=== PATIENT | female | born 1995 | race Caucasian/White ===

== ENCOUNTER 2016-08-20 22:11 | Emergency (ER) | payer BC, OTHER ==
[2016-08-20 23:42] VITALS: TEMP 98.4; BMI 20.1
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
[2016-08-21] MEDS ORDERED: PREDNISONE 20 MG TAB PO ONE (02:59)
[2016-08-21] MEDS ORDERED: DIAZEPAM 5 MG TAB PO ONE (02:59)
[2016-08-21] MEDS ORDERED: OXYCODONE HCL 5 MG TABLET PO ONE (02:59)
[2016-08-21] MEDS ORDERED: ONDANSETRON HCL 4 MG ODT TAB PO ONE (03:07)
[2016-08-21 03:14] VITALS: BP 100/62; PULSE 78
== END 2016-08-21 03:13 | disposition home or self-care (01) ==
LOC: ED 22:11
DX: S06.0X0A Concussion without loss of consciousness, initial encounter (principal); V49.9XXA Car occupant (driver) (passenger) injured in unspecified traffic accident, initial encounter; Y93.9 Activity, unspecified; Y92.410 Unspecified street and highway as the place of occurrence of the external cause
CPT/HCPCS: 71020; 99283; J3490

== ENCOUNTER 2016-09-07 02:23 | Emergency (ER) | payer BC ==
[2016-09-07 02:39] VITALS: TEMP 98.4; BMI 20.7
[2016-09-07] MEDS ORDERED: IBUPROFEN 800 MG TAB PO ONE ×2 (03:12→04:15)
[2016-09-07] MEDS ORDERED: ONDANSETRON HCL 4 MG ODT TAB PO ONE (03:12)
[2016-09-07] MEDS ORDERED: ONDANSETRON HCL 4 MG/2 ML VIAL IV ONE ×2 (03:16→04:10)
[2016-09-07] MEDS ORDERED: MORPHINE 4 MG/ML INJECTION IV ONE (03:16)
[2016-09-07 03:27] LABS: AUTOMATED BASOPHIL 0.8 % (0-2); AUTOMATED EOSINOPHIL 1.4 % (0-5); AUTOMATED LYMPH 32.6 % (17-44); AUTOMATED MONOCYTE 8.4 % (3-10); AUTOMATED NEUTROPHIL 56.8 % (45-76); MPV 8.6 fL (7.4-10.4)
[2016-09-07] MEDS ORDERED: NS 1,000 ML IV ONE (03:31)
--- NOTE | 2016-09-07 03:31 | EDPRACDOC ---
- General Information Chief Complaint: Abdominal Pain Stated Complaint: ABD PAIN Time Seen by Provider: 09/07/16 03:12 Information Source: Patient Mode Of Arrival: Car Home Medications: Home Medications Levothyroxine Sodium [Synthroid] 25 mcg PO DAILY #30 tablet 06/19/16 Ibuprofen Tablet [Motrin] 600 mg PO TID PRN #30 tab 09/07/16 Ondansetron [Zofran Odt] 4 mg PO TID PRN #10 tab.rapdis 09/07/16 Paroxetine HCl [Paxil] 20 mg PO DAILY 09/07/16 Allergies/Adverse Reactions: Allergies Allergy/AdvReac Type Severity Reaction Status Date / Time Penicillins Allergy Unknown Rash-Genera Verified 08/20/16 23:41 lized - History of Present Illness Onset: today HPI: C/o crampy RUQ, epigastric and right back pain with N/V, temp of 99.5 since waking up this am. Hx of bloating and gas after meals, but today was a different , more intense pain. Took motrin this am, did not help. Denies sob, cp, cough, sore throat, diarrhea, change in urine or BM, vaginal sx. Med hx = hypothyroid, depression. Surgical hx = appy. Pain Location: Reports: Epigastric, RUQ Pain Context: Reports: Spontaneous, After Eating Pain Severity: Moderate Pain Quality: Reports: Cramping, Sharp Pain Radiation: Reports: Back (right side) : No Adult Abdominal History: Reports: Abdominal Surgery Female Abdominal History: Reports: UTI. Denies: Abdominal Surgery Modifying Factors: improves with: Nothing Female Associated Signs & Symptoms: Reports: Nausea, Vomiting, Chills Oral Intake: Normal Urinary Output: Normal ED Past Medical History - History Reviewed Yes Nurses notes reviewed and agree except as marked - Patient Medical History Neurological History: Denies: Cerebrovascular Accident, Seizures, Migraine, Dementia, Epilepsy, Gu[place] Syndrome, Parkinson's, Metabolic encephalopathy, Multiple Sclerosis, Myasthenia Gravis, Toxic Encephalopathy Cardiac History: Denies: Coronary Artery Disease, Atrial Fibrillation, Hypertension, Congestive Heart Failure, Heart Attack, Cardiac Catheterization, CABG, Stress Test, Hypercholesterolemia, Internal Defibrillator, Pacemaker, Cardiomyopathy, Valvular Heart Disease, Syncope Respiratory History: Denies: Asthma, COPD, Bronchitis, Asbestosis, Aspiration Pneumonia, Cough, Chronic Bronchitis, Pneumonia, Emphysema, Pulmonary Embolism GI/ History: Reports: Urinary Tract Infection, Gastroesophageal Reflux. Denies: Renal Disease, Renal Failure, Renal (Kidney) Cancer, Kidney (Renal Surgery), Kidney Stones, Liver Failure, Ulcer, IBD, Diverticulosis, Pancreatitis , BPH Musculoskeletal History: Denies: Arthritis, Gout, Rheumatoid Arthritis, Osteoarthritis Psychological History: Reports: Depression, Anxiety. Denies: Substance Use Disorder Systemic History: Reports: Hypothyroidism. 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 Denies: CABG, Hysterectomy, Cardiac Catheterization - Family Medical History Reports: Hypertension (PATERNAL GRANDFATHER), Diabetes (PATERNAL GRANDMOTHER), Stroke (PATERNAL GRANDFATHER). Denies: Cancer, Cardiac Disorders - Social Medical History Smoking Status: Never smoker Social History: Denies: Amphetamine Use, Barbiturate Use, Benzodiazipine Use, Cocaine Use, Heroin Use, Marijuana Use, Methadone Use, MDMA (Ecstasy) Use, Other Substance Use EDM Review of Systems - Review of Systems ROS Negative Except as Marked: Yes All systems reviewed and were negative except as marked Gastrointestinal: Nausea, Pain, Vomiting - Physical Exam Constitutional: Alert Oriented to: Time, Person, Place Last recorded Vital Signs: Last Vital Signs Temp 98.4 F 09/07/16 02:34 Pulse 72 09/07/16 04:25 Resp 18 09/07/16 04:25 BP 96/62 L 09/07/16 04:25 Pulse Ox 99 09/07/16 04:25 Oxygen Pulse Oxygen Saturation 99 O2 Device Room Air Oxygen Flow Rate Fraction of Inspired Oxygen ( FIO2) - HEENT Head: Normal Eye Exam: negative: Conjunctival Injection, Scleral Icterus Oropharynx: negative: Drooling TMJ: Normal Nose: No Symptoms Reported Neck: Normal - Respiratory/Cardiovascular Respiratory: Normal - CTA Cardiovascular: Normal - GI Tenderness: Moderate, RUQ, Epigastric Layne's Sign: Positive - Musculoskeletal Back: Normal Extremities: Normal - Integumentary Skin: Normal - Neurologic Mood Description: Normal Thought: Coherent Perception: Normal - Results 09/07/16 03:20 09/07/16 03:20 WBC 7.8 xk/uL (3.8-10.8) 09/07/16 03:20 RBC 4.50 xM/uL (4.20-5.40) 09/07/16 03:20 Hgb 13.3 g/dL (12.0-16.0) 09/07/16 03:20 Hct 39.8 % (36-47) 09/07/16 03:20 MCV 89 fL (81-99) 09/07/16 03:20 MCH 29.5 pg (27-32) 09/07/16 03:20 MCHC 33.4 g/dl (33-36) 09/07/16 03:20 RDW 12.6 % (11.5-14.5) 09/07/16 03:20 Plt Count 224 xk/uL (130-400) 09/07/16 03:20 MPV 8.6 fL (7.4-10.4) 09/07/16 03:20 Neut % (Auto) 56.8 % (45-76) 09/07/16 03:20 Lymph % (Auto) 32.6 % (17-44) 09/07/16 03:20 [place] % (Auto) 8.4 % (3-10) 09/07/16 03:20 Eos % (Auto) 1.4 % (0-5) 09/07/16 03:20 Baso % (Auto) 0.8 % (0-2) 09/07/16 03:20 Absolute Neuts (auto) 4.37 xk/uL (1.7-8.2) 09/07/16 03:20 Absolute Lymphs (auto) 2.50 xk/uL (0.65-4.75) 09/07/16 03:20 Sodium 139 mEq/L (137-146) 09/07/16 03:20 Potassium 3.8 mEq/L (3.5-5.1) 09/07/16 03:20 Chloride 103 mEq/L (98-107) 09/07/16 03:20 Carbon Dioxide 26 mMOL/L (22-33) 09/07/16 03:20 Anion Gap 14 mEq/L (8-16) 09/07/16 03:20 BUN 12 MG/DL (7-17) 09/07/16 03:20 Creatinine 0.50 MG/DL (0.52-1.04) L 09/07/16 03:20 Estimated GFR (MDRD) > 60 mL/min (>=60) 09/07/16 03:20 Glucose 84 mg/dL (70-99) 09/07/16 03:20 Calculated Osmolality 267 MOs/Kg (270-290) L 09/07/16 03:20 Calcium 9.2 MG/DL (8.4-10.2) 09/07/16 03:20 Total Bilirubin 0.6 MG/DL (0.2-1.3) 09/07/16 03:20 AST 44 IU/L (14-36) H 09/07/16 03:20 ALT 56 IU/L (9-52) H 09/07/16 03:20 Alkaline Phosphatase 73 IU/L (45-300) 09/07/16 03:20 Total Protein 7.4 G/DL (6.3-8.2) 09/07/16 03:20 Albumin 4.5 G/DL (3.5-5.0) 09/07/16 03:20 Lipase 97 U/L (23-300) 09/07/16 03:20 Urine Color Yellow 09/07/16 03:37 Urine Clarity Clear 09/07/16 03:37 Urine pH 5.0 (5.0-8.0) 09/07/16 03:37 Ur Specific [place] 1.010 (1.003-1.035) 09/07/16 03:37 Urine Protein Neg (NEG/TRACE) 09/07/16 03:37 Urine Glucose (UA) Neg (NEGATIVE) 09/07/16 03:37 Urine Ketones Neg (NEGATIVE) 09/07/16 03:37 Urine Occult Blood 1+ (NEG/TRACE) H 09/07/16 03:37 Urine Nitrite Neg (NEGATIVE) 09/07/16 03:37 Urine Bilirubin Neg (NEGATIVE) 09/07/16 03:37 Urine Urobilinogen <2.0 MG/DL (0-1) 09/07/16 03:37 Ur Leukocyte Esterase Neg (NEGATIVE) 09/07/16 03:37 Urine RBC 0-2 (0-5) 09/07/16 03:37 Urine WBC 0-2 (0-5) 09/07/16 03:37 Ur Epithelial Cells Occ 09/07/16 03:37 Urine Bacteria Few (NEG/FEW) 09/07/16 03:37 Urine Mucus Occ (NEG/OCC) 09/07/16 03:37 Urine Test Neg (NEGATIVE) 09/07/16 03:37 Lab Results 09/07/16 09/07/16 09/07/16 03:37 03:37 03:20 WBC 7.8 RBC 4.50 Hgb 13.3 Hct 39.8 MCV 89 MCH 29.5 MCHC 33.4 RDW 12.6 Plt Count 224 MPV 8.6 Neut % (Auto) 56.8 Lymph % (Auto) 32.6 [place] % (Auto) 8.4 Eos % (Auto) 1.4 Baso % (Auto) 0.8 Absolute Neuts (auto) 4.37 Absolute Lymphs (auto) 2.50 Sodium Potassium Chloride Carbon Dioxide Anion Gap BUN Creatinine Estimated GFR (MDRD) Glucose Calculated Osmolality Calcium Total Bilirubin AST ALT Alkaline Phosphatase Total Protein Albumin Lipase Urine Color Yellow Urine Clarity Clear Urine pH 5.0 Ur Specific [place] 1.010 Urine Protein Neg Urine Glucose (UA) Neg Urine Ketones Neg Urine Occult Blood 1+ H Urine Nitrite Neg Urine Bilirubin Neg Urine Urobilinogen <2.0 Ur Leukocyte Esterase Neg Urine RBC 0-2 Urine WBC 0-2 Ur Epithelial Cells Occ Urine Bacteria Few Urine Mucus Occ Urine Test Neg 09/07/16 03:20 WBC RBC Hgb Hct MCV MCH MCHC RDW Plt Count MPV Neut % (Auto) Lymph % (Auto) [place] % (Auto) Eos % (Auto) Baso % (Auto) Absolute Neuts (auto) Absolute Lymphs (auto) Sodium 139 Potassium 3.8 Chloride 103 Carbon Dioxide 26 Anion Gap 14 BUN 12 Creatinine 0.50 L Estimated GFR (MDRD) > 60 Glucose 84 Calculated Osmolality 267 L Calcium 9.2 Total Bilirubin 0.6 AST 44 H ALT 56 H Alkaline Phosphatase 73 Total Protein 7.4 Albumin 4.5 Lipase 97 Urine Color Urine Clarity Urine pH Ur Specific [place] Urine Protein Urine Glucose (UA) Urine Ketones Urine Occult Blood Urine Nitrite Urine Bilirubin Urine Urobilinogen Ur Leukocyte Esterase Urine RBC Urine WBC Ur Epithelial Cells Urine Bacteria Urine Mucus Urine Test - Additional Information LFT's and Lipase not significantly elevated. Pt's mother states that pt's SBP usually runs in the 80's-90's. Decision Time to Discharge: 04:16 - Departure Disposition: Home Condition: Stable Final Diagnosis: Right upper quadrant pain Nausea & vomiting Qualifiers: Vomiting type: unspecified Vomiting Intractability: non-intractable Qualified Code(s): R11.2 - Nausea with vomiting, unspecified Instructions: Non-pharmacological Pain Management Therapies for Adults (GEN), Acute Nausea and Vomiting (ED), Acute Abdominal Pain (ED), Abdominal Pain (ED) Education/Counseling Given To: Patient, Family Member Education/Counseling Given Regarding: Diagnosis, Treatment, Prognosis, Follow Up Referrals: Polina Macias NP [Ambulatory] - One Week Prescriptions: New Ibuprofen Tablet [Motrin] 600 mg PO TID PRN #30 tab PRN Reason: Pain Ondansetron [Zofran Odt] 4 mg PO TID PRN #10 tab.rapdis PRN Reason: Nausea/Vomiting No Action Levothyroxine Sodium [Synthroid] 25 mcg PO DAILY #30 tablet Paroxetine HCl [Paxil] 20 mg PO DAILY Additional Instructions: Return to ED today at 7:30am or arrange with your primary care provider for ultrasound of gallbladder. Return to ED before for any new or worsening symptoms.
[2016-09-07] MEDS ORDERED: ACETAMINOPHEN 325 MG/TAB TABLET PO ONE (03:32)
[2016-09-07 03:38] LABS: BLOOD UREA NITROGEN 12 MG/DL (7-17); CALCIUM 9.2 MG/DL (8.4-10.2); CALCULATED OSMOLALITY 267 MOs/Kg (270-290); CHLORIDE 103 mEq/L (98-107); GLUCOSE 84 mg/dL (70-99); SODIUM LEVEL 139 mEq/L (137-146); TOTAL PROTEIN 7.4 G/DL (6.3-8.2)
[2016-09-07 03:54] LABS: LEUKOCYTES/URINE NEG (NEGATIVE); NITRITE/URINE NEG (NEGATIVE); RBC/URINE 0-2 (0-5); URINE OCCULT BLOOD 1+ (NEG/TRACE); WBC/URINE 0-2 (0-5)
[2016-09-07] MEDS ORDERED: IBUPROFEN 600 MG TAB PO ONE (04:23)
[2016-09-07 04:26] VITALS: BP 96/62; PULSE 72
== END 2016-09-07 04:34 | disposition home or self-care (01) ==
LOC: ED 02:23
DX: R10.11 Right upper quadrant pain (principal); R11.2 Nausea with vomiting, unspecified
CPT/HCPCS: 36415; 80053; 81001; 81025; 83690; 85025; 96361; 96374; 96376; 99284; J2405; J3490; J2270

== ENCOUNTER 2016-09-07 10:01 | Emergency (ER) | payer BC ==
[2016-09-07 10:01] VITALS: BMI 20.7
[2016-09-07 10:25] VITALS: TEMP 98.7
[2016-09-07] MEDS ORDERED: ONDANSETRON HCL 4 MG ODT TAB PO ONE (11:19)
[2016-09-07] MEDS ORDERED: OXYCODONE HCL 5 MG TABLET PO ONE (11:19)
--- NOTE | 2016-09-07 12:32 | DIRPT ---
CLINICAL DATA: Nausea and vomiting for 1 day. RIGHT upper quadrant pain. EXAM: US ABDOMEN LIMITED - RIGHT UPPER QUADRANT COMPARISON: CT 08/24/2015 FINDINGS: Gallbladder: No gallstones or wall thickening visualized. No sonographic Layne sign noted by senior program analyst. Common bile duct: Diameter: Normal at 2 mL Liver: No focal lesion identified. Within normal limits in parenchymal echogenicity. IMPRESSION: Normal RIGHT upper quadrant ultrasound. Electronically Signed By: Artem Pierson M.D. On: 09/07/2016 12:29
[2016-09-07] MEDS ORDERED: DIATRIZOATE MEGLMINE/SODIUM 30 ML BOTTLE PO ONE (12:38)
[2016-09-07] MEDS ORDERED: Pharmacy Review for Metformin - IV Contrast Given SCH ×2 (13:00)
[2016-09-07] MEDS ORDERED: ONDANSETRON HCL 4 MG/2 ML VIAL IV ONE (13:10)
[2016-09-07] MEDS ORDERED: NS 1,000 ML IV ONE (13:10)
--- NOTE | 2016-09-07 14:28 | DIRPT ---
CLINICAL DATA: Abdominal pain, right upper quadrant pain for 1 day EXAM: CT ABDOMEN AND PELVIS WITH CONTRAST TECHNIQUE: Multidetector CT imaging of the abdomen and pelvis was performed using the standard protocol following bolus administration of intravenous contrast. CONTRAST: 80 mL Isovue 370 COMPARISON: None. FINDINGS: Lower chest: Lung bases are clear. Normal heart size. Hepatobiliary: Normal liver. Normal gallbladder. Pancreas: Normal. Spleen: Normal. Adrenals/Urinary Tract: Normal adrenal glands. Normal kidneys. No urolithiasis or obstructive uropathy. Normal bladder. Stomach/Bowel: No bowel wall thickening or dilatation. Normal appendix. No pneumatosis, pneumoperitoneum or portal venous gas. No abdominal or pelvic free fluid. Vascular/Lymphatic: Normal caliber abdominal aorta. No lymphadenopathy. Reproductive: Normal uterus. No adnexal mass. Other: No fluid collection or hematoma. Musculoskeletal: No aggressive lytic or sclerotic osseous lesion. No acute osseous abnormality. IMPRESSION: 1. No acute abdominal or pelvic pathology. 2. Normal appendix. Electronically Signed By: Fany Pritchett On: 09/07/2016 14:26
--- NOTE | 2016-09-07 15:18 | EDPRACDOC ---
- General Information Chief Complaint: Abdominal Pain Stated Complaint: ABD PAIN/ FOLLOW UP Time Seen by Provider: 09/07/16 11:14 Information Source: Patient, Family Mode Of Arrival: Car Home Medications: Home Medications Levothyroxine Sodium [Synthroid] 25 mcg PO DAILY #30 tablet 06/19/16 Ibuprofen Tablet [Motrin] 600 mg PO TID PRN #30 tab 09/07/16 Ondansetron [Zofran Odt] 4 mg PO TID PRN #10 tab.rapdis 09/07/16 Oxycodone Immediate Release [Oxycodone Immediate Release (OxyIR)] 5 mg PO Q6H PRN #20 tab 09/07/16 Paroxetine HCl [Paxil] 20 mg PO DAILY 09/07/16 Allergies/Adverse Reactions: Allergies Allergy/AdvReac Type Severity Reaction Status Date / Time Penicillins Allergy Unknown Rash-Genera Verified 09/07/16 10:25 lized - History of Present Illness Onset: 1 day HPI: PT PRESENTS DUE TO RUQ PAIN. PT WAS SEEN AT THIS FACILITY LAST NIGHT AND TOLD TO RETURN TODAY IF SHE CONTINUED TO HAVE PAIN TO HAVE A GALLBLADDER ULTRASOUND DONE. Pain Location: Reports: RUQ Pain Context: Reports: Spontaneous Pain Severity: Moderate Pain Quality: Reports: Sharp, Stabbing Pain Radiation: Reports: Back Last Menstrual Period: control : No Adult Abdominal History: Denies: Abdominal Surgery, Urolithiasis, Bowel Obstruction, Similar Pain (dx) Female Abdominal History: Reports: UTI Modifying Factors: improves with: Nothing Female Associated Signs & Symptoms: Reports: Nausea Oral Intake: Decreased Urinary Output: Normal ED Past Medical History - History Reviewed Yes Nurses notes reviewed and agree except as marked - Patient Medical History Neurological History: Denies: Cerebrovascular Accident, Seizures, Migraine, Dementia, Epilepsy, Guillian-[place] Syndrome, Parkinson's, Metabolic encephalopathy, Multiple Sclerosis, Myasthenia Gravis, Toxic Encephalopathy Cardiac History: Denies: Coronary Artery Disease, Atrial Fibrillation, Hypertension, Congestive Heart Failure, Heart Attack, Cardiac Catheterization, CABG, Stress Test, Hypercholesterolemia, Internal Defibrillator, Pacemaker, Cardiomyopathy, Valvular Heart Disease, Syncope Respiratory History: Denies: Asthma, COPD, Bronchitis, Asbestosis, Aspiration Pneumonia, Cough, Chronic Bronchitis, Pneumonia, Emphysema, Pulmonary Embolism GI/ History: Reports: Urinary Tract Infection, Gastroesophageal Reflux. Denies: Renal Disease, Renal Failure, Renal (Kidney) Cancer, Kidney (Renal Surgery), Kidney Stones, Liver Failure, Ulcer, IBD, Diverticulosis, Pancreatitis , BPH Musculoskeletal History: Denies: Arthritis, Gout, Rheumatoid Arthritis, Osteoarthritis Psychological History: Reports: Anxiety. Denies: Depression, Substance Use Disorder Systemic History: Reports: Hypothyroidism. 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 Denies: CABG, Hysterectomy, Cardiac Catheterization - Family Medical History Reports: Hypertension (PATERNAL GRANDFATHER), Diabetes (PATERNAL GRANDMOTHER), Stroke (PATERNAL GRANDFATHER). Denies: Cancer, Cardiac Disorders - Social Medical History Smoking Status: Never smoker Social History: Denies: Amphetamine Use, Barbiturate Use, Benzodiazipine Use, Cocaine Use, Heroin Use, Marijuana Use, Methadone Use, MDMA (Ecstasy) Use, Other Substance Use EDM Review of Systems - Review of Systems ROS Negative Except as Marked: Yes All systems reviewed and were negative except as marked - Physical Exam Constitutional: Alert Oriented to: Time, Person, Place Last recorded Vital Signs: Last Vital Signs Temp 98.7 F 09/07/16 10:22 Pulse 72 09/07/16 12:37 Resp 22 09/07/16 12:37 BP 94/55 L 09/07/16 12:37 Pulse Ox 97 09/07/16 12:37 Oxygen Pulse Oxygen Saturation 97 O2 Device Room Air Oxygen Flow Rate Fraction of Inspired Oxygen ( FIO2) - HEENT Head: Normal ( normocephalic) Eye Exam: Normal (PERRL, EOMI, Sclera white) Oropharynx: Normal (Pharynx:Moist without exudate,Gums-no swelling) Nose: No Symptoms Reported (septum midline) Neck: Normal (FROM, trachea at midline) - Respiratory/Cardiovascular Respiratory: Normal - CTA (BBS clear to auscultation without adventitious sounds ) Cardiovascular: Normal (RRR without murmur, gallop or rub) - GI Auscultation: Normal (NABS) Palpation: Normal (Soft,No rebound or guarding, non distended) Tenderness: Moderate, RUQ Layne's Sign: Negative Rectal Exam: Deferred - Musculoskeletal Back: Normal (Non-Tender) Extremities: Normal (Normal tone, Pulses 2+ No cyanosis or edema, FROM) - Integumentary Skin: Normal, Warm, Dry Lymphatics: Normal (no adenopathy) - Neurologic Memory Impaired: Normal Motor Function: Normal (Normal tone, Pulses 2+ No cyanosis or edema, FROM) Cranial Nerve: Normal (CN II-X11 intact sensation, strength 5/5) Cerebellar: Normal Mood Description: Normal Perception: Normal - Differential Diagnosis Cholecystitis, Cholelithiasis Decision Time to Discharge: 15:18 - Departure Disposition: Home Condition: Stable Final Diagnosis: Abdominal pain Instructions: Acute Abdominal Pain (ED) Education/Counseling Given To: Patient Education/Counseling Given Regarding: Diagnosis, Treatment, Prognosis, Follow Up Referrals: Bridget Morales [Resource Management] - One Week Prescriptions: New Oxycodone Immediate Release [Oxycodone Immediate Release (OxyIR)] 5 mg PO Q6H PRN #20 tab PRN Reason: Pain No Action Levothyroxine Sodium [Synthroid] 25 mcg PO DAILY #30 tablet Paroxetine HCl [Paxil] 20 mg PO DAILY Ibuprofen Tablet [Motrin] 600 mg PO TID PRN #30 tab PRN Reason: Pain Ondansetron [Zofran Odt] 4 mg PO TID PRN #10 tab.rapdis PRN Reason: Nausea/Vomiting Additional Instructions: PLEASE MAKE A FOLLOW UP APPOINTMENT WITH PCP FOR A HIDA SCAN.
[2016-09-07 15:58] VITALS: BP 87/66; PULSE 84
== END 2016-09-07 15:45 | disposition home or self-care (01) ==
LOC: ED 10:01
DX: R10.9 Unspecified abdominal pain (principal)
CPT/HCPCS: 74177; 76705; 96361; 96374; 99284; A9698; J2405; J3490